=== PATIENT | female | born 1985 | race Hispanic/Latino ===

== ENCOUNTER 2020-01-24 19:40 | Day surgery (SDC) | payer OTHER ==
[2020-01-24 20:10] VITALS: BMI 28.2
[2020-01-24] MEDS ORDERED: hydrALAZINE 20 MG/ML VIAL SLOW IVP PRN (20:30)
--- NOTE | 2020-01-24 20:32 | PDOC.LDHP ---
Labor and Delivery H&P Chief complaint: contractions HPI: 34 y/o G1 at 38w6d, patient of Dr. Robin, presents with ctx for the last 4 hours. Denies VB, LOF, or decreased FM. ROS neg for HEENT, CV, pulm, GI, , neuro, psych, skin, musculoskeletal, or constitutional symptoms other than mentioned above. OB History Details: First Current complications: none Past Medical History: None Current medications: pre-viridiana vitamins Previous surgical history: other (finger surgery) Allergies/Adverse Reactions: Allergies Allergy/AdvReac Type Severity Reaction Status Date / Time No Known Allergies Allergy Verified 01/24/20 20:11 Social history: none - Physical Exam Vital signs reviewed and normal: yes General: NAD, resting Lungs: nonlabored breathing Abdomen: gravid Extremeties: no edema FHT: category 1 (130s, mod variability, + accels, no decels) [place] contractions every: 4-5 mins - Vaginal Exam cm dilated: 0 Effacement: 0% Station: -3 - Assessment 34 y/o G1 at 38w6d with no e/o active labor. status reassuring with reactive NST. - Plan -: D/c home with precautions. Advised to keep all appointments.
== END 2020-01-24 20:49 | disposition home or self-care (01) ==
LOC: L&D/OP 19:40
PROVIDERS: ATTEND Family Medicine
DX: O47.1 False labor at or after 37 completed weeks of gestation (principal); Z3A.38 38 weeks gestation of pregnancy
CPT/HCPCS: 99282

== ENCOUNTER 2020-01-25 12:22 | Day surgery (SDC) | payer OTHER ==
[2020-01-25 13:08] VITALS: BMI 28.2
[2020-01-25 13:09] VITALS: BP 115/69; TEMP 98.6
[2020-01-25] MEDS ORDERED: hydrALAZINE 20 MG/ML VIAL SLOW IVP PRN ×3 (13:20→16:51)
[2020-01-25] MEDS ORDERED: Butorphanol Tartrate 1 MG/ML VIAL SLOW IVP PRN ×2 (13:20→16:50)
[2020-01-25] MEDS ORDERED: Promethazine HCl 25 MG/ML VIAL IM/IV PRN (13:21)
--- NOTE | 2020-01-25 13:23 | PDOC.LDHP ---
Labor and Delivery H&P HPI: EGA 39 weeks [address] Robin Patient was here last PM for similar c/o 34 yoG1 at 39 weeks her for CTX, no LOF, no VB, good FM. States CTX started last PM around 1600. Review of Systems: complete ROS performed and as per HPI Current gestational age (weeks): 39 Due date: 02/01/20 Dating criteria: last menstrual period Grav: 1 Current complications: none Abnormal US findings: No Current medications: none Allergies/Adverse Reactions: Allergies Allergy/AdvReac Type Severity Reaction Status Date / Time No Known Allergies Allergy Verified 01/25/20 12:59 - Physical Exam Vital signs reviewed and normal: yes (115/69) General: NAD Heart: RRR Lungs: CTAB Abdomen: gravid Extremeties: no edema FHT: category 1 [place] contractions every: Q3-5 - Vaginal Exam cm dilated: 1 Effacement: 75% Station: -2 - Assessment L&D Assessment: scheduled repeat section (Latent labor at full term. We will make 4 hr obs and allow pain meds to haver comfort effect. If unchanged after 4 hrs, may consider scheduled IOL tomorrow when her MD returns. Conservative care for now as CX 1cm (basically same as last pm).)
[2020-01-25] MEDS: Lactated Ringer's 1,000 ML IV SCH ×2 (13:35→15:45)
[2020-01-25] MEDS: Butorphanol Tartrate 1 MG/ML VIAL ONE ×2 (13:40→16:54)
--- NOTE | 2020-01-25 16:50 | PDOC.EVN ---
Event Note - Event Note Event Note: After prolonged observation, now 1-2cm. FHTs are Cat 1.Due to persistent CTX and rating them 7 out of 10 we will keep for early labor. I will notify Dr stokes who is out until 2200 this PM.
[2020-01-25] MEDS ORDERED: Varicella virus, LIVE 0.5 ML VIAL SC ONE (16:51)
[2020-01-25] MEDS ORDERED: Bisacodyl 10 MG SUPP PR PRN (16:51)
[2020-01-25] MEDS ORDERED: Measles/Mumps/Rubella 10 MCG/0.5 ML VIAL SC ONE (16:51)
[2020-01-25] MEDS ORDERED: Adacel (T-DAP) 0.5 ML SYRINGE IM ONE (16:51)
[2020-01-25] MEDS ORDERED: Acetaminophen/Codeine 30-300mg Tablet PO PRN ×2 (16:51)
[2020-01-25] MEDS ORDERED: Milk Of Magnesia 30 ML UDCUP PO PRN (16:51)
[2020-01-25] MEDS ORDERED: Promethazine HCl 25 MG/ML VIAL IM PRN (16:51)
[2020-01-25] MEDS ORDERED: Ondansetron PF 4 MG/2 ML Vial IVP PRN (16:51)
[2020-01-25] MEDS ORDERED: Butorphanol Tartrate 1 MG/ML VIAL ONE (16:52)
[2020-01-25] MEDS ORDERED: Ferrous Sulfate 325 MG TAB PO SCH (17:00)
[2020-01-25] MEDS ORDERED: NS / Oxytocin 40 units/1000ml 1,000 ML IV SCH (17:00)
[2020-01-25 17:16] LABS: Hemoglobin 9.6 g/dL (12.0-16.0); Mean Corpuscular HGB CONC 32.1 g/dL (32.0-36.0); Mean Corpuscular Hemoglobin 22.3 pg (27.0-31.0); Mean Corpuscular Volume 69.4 fL (78.0-98.0); Mean Platelet Volume 10.5 fL (7.4-10.4); Platelet Count 232 thou/uL (130-400); RBC Distribution Width 17.7 % (11.5-14.5); White Blood Cell (WBC) Count 13.6 thou/uL (4.8-10.8)
[2020-01-25 17:53] LABS: Syphilis Antibody Nonreactive (Nonreactive); Syphilis Antibody Index 0.03 S/CO (<1.00 Non-Reactive)
[2020-01-25 17:54] LABS: HBSAg Index 0.16 S/CO (0-0.99); HIV (1/2) Antibody/Antigen Non-Reactive (NonReactive); HIV 1/2 INDEX 0.06 S/CO (<1.00); Hep B Surf Ag Non-Reactive S/CO (NonReactive)
[2020-01-25] MEDS ORDERED: Butorphanol Tartrate 1 MG/ML VIAL SLOW IVP SCH (19:15)
[2020-01-25] MEDS ORDERED: Docusate Calcium (SURFAK) 240 MG CAP PO SCH (21:00)
[2020-01-25] MEDS ORDERED: Ibuprofen 800 MG TAB PO SCH (22:00)
[2020-01-25] MEDS ORDERED: HYDROcodone/Acetaminophen 5/325 mg Tablet PO SCH (22:15)
== END 2020-01-25 22:40 | disposition home health service (06) ==
LOC: L&D/OP 12:22
PROVIDERS: ATTEND Family Medicine
DX: O60.03 Preterm labor without delivery, third trimester (principal); Z3A.39 39 weeks gestation of pregnancy
CPT/HCPCS: 36415; 85027; 86780; 86850; 86900; 86901; 87340; 87389; 90707; 90715; 90716; J0595

== ENCOUNTER 2020-01-26 04:01 | Inpatient (IN) | payer OTHER ==
[2020-01-26] MEDS ORDERED: hydrALAZINE 20 MG/ML VIAL SLOW IVP PRN ×4 (04:30→22:36)
[2020-01-26] MEDS ORDERED: Butorphanol Tartrate 1 MG/ML VIAL SLOW IVP PRN (04:30)
--- NOTE | 2020-01-26 04:33 | PDOC.LDHP ---
Labor and Delivery H&P HPI: Patient of Dr Robin who was admitted earlier by me to L&D. After Dr Robin's arrival (around 2200), he evaluated her at bedside and reviewed with her latent labor and no change from 1cm and both decided on discharge to home. EGA 39 weeks. She returns with tyhe same CC of CTX, no LOF, no VB, good FM. Review of Systems: completred and as per HPI Current gestational age (weeks): 39 Dating criteria: last menstrual period Grav: 1 Para: 0 Abnormal US findings: No Current medications: pre-viridiana vitamins Allergies/Adverse Reactions: Allergies Allergy/AdvReac Type Severity Reaction Status Date / Time No Known Allergies Allergy Verified 01/25/20 12:59 Social history: none - Physical Exam Vital signs reviewed and normal: yes General: NAD Heart: RRR Lungs: CTAB Abdomen: gravid Extremeties: no edema FHT: category 1 [place] contractions every: every 3-5 minutes - Vaginal Exam cm dilated: 1 (to 2 cm) Effacement: 50% Station: -2 - Assessment Latent labor at full term with similar exam to before, but with discomfort due to their persistence. - Plan Plan: observation in L&D -: OBS here and L&D and pain control. I do not foresee her being discharged again as she is having persistent pain despite same exam but I will make her OBS for now and recheck CX. Dr Robin will be notified at recheck with his decision at that point for final deposition. I would recommend admission.
[2020-01-26 04:52] VITALS: BMI 28.2
[2020-01-26] MEDS: Lactated Ringer's 1,000 ML IV SCH ×3 (04:56→12:16)
[2020-01-26] MEDS ORDERED: Acetaminophen/Codeine 30-300mg Tablet PO PRN ×2 (06:44)
[2020-01-26] MEDS ORDERED: Bisacodyl 10 MG SUPP PR PRN ×2 (06:44→22:36)
[2020-01-26] MEDS ORDERED: Promethazine HCl 25 MG/ML VIAL IM PRN ×3 (06:44→22:36)
[2020-01-26] MEDS ORDERED: Milk Of Magnesia 30 ML UDCUP PO PRN ×2 (06:44→22:36)
[2020-01-26] MEDS ORDERED: Ondansetron PF 4 MG/2 ML Vial IVP PRN ×3 (06:44→22:36)
--- NOTE | 2020-01-26 06:44 | PDOC.EVN ---
Event Note - Event Note Event Note: d/w Dr Robin. Desires AROM if able. I just checked her: 3cm//-1/[facility]. ...I performed AROM after I discussed it with her. AROM clear fluid, moderate. I performed fundal presssure after AROM to assist descent slightly. CX post AROM: /-1. Info relayed to [place]
[2020-01-26] MEDS ORDERED: NS / Oxytocin 40 units/1000ml 1,000 ML IV SCH ×2 (06:45→22:36)
[2020-01-26] MEDS ORDERED: Fentanyl 4 mcg/Bup 0.1% Cadd 100 ML ONE ×2 (06:56→12:56)
[2020-01-26] MEDS ORDERED: Lactated Ringer's 500 ML IV PRN (07:21)
[2020-01-26] MEDS ORDERED: EPHEDRINE 25 MG/5 ML SYRINGE SLOW IVP PRN (07:21)
[2020-01-26] MEDS ORDERED: Naloxone HCl 0.4 mg/ml Vial IVP PRN ×2 (07:21)
[2020-01-26] MEDS ORDERED: diphenhydrAMINE 50 MG/ML VIAL IVP PRN (07:21)
[2020-01-26] MEDS: Fentanyl 4 mcg/Bupivacaine 0.1% Cassette 100 ML EPIDURAL SCH ×2 (07:30→13:18)
[2020-01-26] MEDS ORDERED: Communication Order-Pharmacy FS SCH (07:30)
[2020-01-26] MEDS ORDERED: Ferrous Sulfate 325 MG TAB PO SCH (08:00)
[2020-01-26] MEDS ORDERED: Docusate Calcium (SURFAK) 240 MG CAP PO SCH (09:00)
[2020-01-26] MEDS ORDERED: Varicella virus, LIVE 0.5 ML VIAL SC ONE (09:00)
[2020-01-26] MEDS ORDERED: Adacel (T-DAP) 0.5 ML SYRINGE IM ONE (09:00)
[2020-01-26] MEDS ORDERED: Measles/Mumps/Rubella 10 MCG/0.5 ML VIAL SC ONE (09:00)
[2020-01-26] MEDS ORDERED: NS w/ Oxytocin 10 units 500 ML ONE (09:18)
[2020-01-26] MEDS: Acetaminophen 325 MG TAB PO PRN ×2 (10:25→14:19)
[2020-01-26] MEDS ORDERED: Dextrose 5%-Lactated Ringers 1,000 ML IV SCH (10:30)
[2020-01-26] MEDS ORDERED: Ampicillin 2 GM in Sodium Chloride 0.9% 100 ML IVPB SCH (12:15)
[2020-01-26] MEDS ORDERED: Gentamicin Sulfate 400 MG in Sodium Chloride 0.9% 100 ML IVPB SCH (12:15)
[2020-01-26] MEDS ORDERED: Misoprostol 200 MCG TAB ONE (15:39)
[2020-01-26] MEDS: Ampicillin 2 GM in Sodium Chloride 0.9% 100 ML IVPB SCH ×2 (18:30→23:54)
[2020-01-26] MEDS ORDERED: Lidocaine 1% (PF) 30 ML VIAL ONE (18:41)
[2020-01-26] MEDS: Ibuprofen 800 MG TAB PO SCH (19:40)
[2020-01-26] MEDS ORDERED: Preparation H Ointment 28 GM TUBE PR PRN (22:36)
[2020-01-26] MEDS ORDERED: diphenhydrAMINE 25 MG CAP PO PRN (22:36)
[2020-01-26] MEDS ORDERED: Lanolin Ointment 7 GM TUBE TOP PRN (22:36)
[2020-01-26] MEDS ORDERED: HYDROcodone/Acetaminophen 5/325 mg Tablet PO PRN (22:36)
[2020-01-26] MEDS ORDERED: Benzocaine-Menthol 82.5 ML CAN TOP PRN (22:36)
[2020-01-26] MEDS ORDERED: Ibuprofen 800 MG TAB PO SCH (23:15)
[2020-01-27] MEDS: Ibuprofen 800 MG TAB PO SCH ×4 (04:43→21:23)
[2020-01-27 05:27] LABS: Hemoglobin 8.8 g/dL (12.0-16.0); Mean Corpuscular HGB CONC 30.1 g/dL (32.0-36.0); Mean Corpuscular Hemoglobin 21.1 pg (27.0-31.0); Mean Corpuscular Volume 70.2 fL (78.0-98.0); Mean Platelet Volume 11.4 fL (7.4-10.4); Platelet Count 212 thou/uL (130-400); RBC Distribution Width 17.7 % (11.5-14.5); Red Blood Cell (RBC) Count 4.15 mill/uL (4.20-5.40); White Blood Cell (WBC) Count 23.6 thou/uL (4.8-10.8)
[2020-01-27] MEDS: Ferrous Sulfate 325 MG TAB PO SCH ×2 (09:32→17:45)
[2020-01-27] MEDS: Prenatal Vitamin 1 TAB PO SCH (09:32)
[2020-01-27] MEDS: Docusate Calcium (SURFAK) 240 MG CAP PO SCH ×2 (09:32→21:23)
[2020-01-27] MEDS: HYDROcodone/Acetaminophen 5/325 mg Tablet PO PRN (21:22)
[2020-01-28] MEDS: Ibuprofen 800 MG TAB PO SCH ×2 (06:21→13:57)
[2020-01-28] MEDS: HYDROcodone/Acetaminophen 5/325 mg Tablet PO PRN (07:56)
[2020-01-28 07:59] VITALS: BP 118/72; TEMP 98.2
[2020-01-28] MEDS: Prenatal Vitamin 1 TAB PO SCH (09:19)
[2020-01-28] MEDS: Ferrous Sulfate 325 MG TAB PO SCH (09:19)
[2020-01-28] MEDS: Docusate Calcium (SURFAK) 240 MG CAP PO SCH (09:19)
--- NOTE | 2020-01-30 06:50 | PQF ---
[employer] PREM PACK ROLAND R MD [id number] CLINICAL DOCUMENTATION CLARIFICATION FORM: POST DISCHARGE Addendum to original discharge summary date: ____ Late entry note date: __ DATE: 01/30/20 ATTN: Edgardo Robin Please exercise your independent, professional judgment in responding to the clarification form. Clinical indicators are provided on the bottom of this form for your review Can you please further clarify the diagnosis being found in Pathology report? ___ Final Diagnosis on the Pathology report: severe acute chorioamnionitis Based on the pathological findings of (i.e. metastasis to the axillary lymph nodes, primary prostate carcinoma, etc.), is this a confirmed diagnosis for this patient? [ ] Yes, this is a secondary diagnosis for this patient [ ] Other (additional comments): [ ] Unable to determine For continuity of documentation, please document condition throughout progress notes and discharge summary. Thank You. CLINICAL INDICATORS - SIGNS/ SYMPTOMS / LABS / RESULTS AND LOCATION IN MR Pathology- severe acute chorioamnionitis Labor and Delivery- Maternal fever Vital Signs 01/25: Temp=98.5 Pulse=88 Respi=18 IR=883/56 Labs WBC: 01/26=23.6 RISK FACTORS / RESULTS AND LOCATION IN MR EGA 39weeks- H and P pg.1 VAVD- DS pg.1 TREATMENTS / RESULTS AND LOCATION IN MR IV Fluids- MAR Ampicillin 2gm IV- MAR Gentamicin 400mg IV- MAR (This form is maintained as a part of the permanent medical record) 2014 [employer]. All Rights Reserved [email or web address]
== END 2020-01-28 14:55 | disposition home or self-care (01) | DRG 807 ==
LOC: L&D/OP 04:01 → L&D 06:44 → 3SW 21:13
PROVIDERS: ADMIT Family Medicine; ATTEND Family Medicine
PROC: 10D07Z6 Extraction of Products of Conception, Vacuum, Via Natural or Artificial Opening (ICD-10-PCS; principal; 2020-01-27)
PROC: 0KQM0ZZ Repair Perineum Muscle, Open Approach (ICD-10-PCS; 2020-01-27)
PROC: 10907ZC Drainage of Amniotic Fluid, Therapeutic from Products of Conception, Via Natural or Artificial Opening (ICD-10-PCS; 2020-01-27)
PROC: 3E033VJ Introduction of Other Hormone into Peripheral Vein, Percutaneous Approach (ICD-10-PCS; 2020-01-27)
PROC: 3E0P7VZ Introduction of Hormone into Female Reproductive, Via Natural or Artificial Opening (ICD-10-PCS; 2020-01-27)
PROC: 3E0234Z Introduction of Serum, Toxoid and Vaccine into Muscle, Percutaneous Approach (ICD-10-PCS; 2020-01-27)
DX: O99.02 Anemia complicating childbirth (principal); Z37.0 Single live birth; O75.81 Maternal exhaustion complicating labor and delivery; O70.1 Second degree perineal laceration during delivery; Z3A.39 39 weeks gestation of pregnancy; D64.9 Anemia, unspecified; Z23 Encounter for immunization
CPT/HCPCS: 36415; 51702; 85027; 86780; 86850; 86900; 86901; 87070; 87205; 87340; 87389; 88307; 90707; 90715; 90716; 96360; 96361; 96374; 99285; J0290; J0595; J1580; J2001; J2590; J3490